=== PATIENT | female | born 1995 | race American Indian/Alaskan Native ===

== ENCOUNTER 2017-07-23 03:07 | Emergency (ER) | payer OTHER ==
[2017-07-23 04:25] LABS: Basophils # (Auto) 0.1 K/mm3 (0.0-0.1); Basophils % (Auto) 2.2 % (0.0-1.8); Eosinophils # (Auto) 0.1 K/mm3 (0.0-0.4); Eosinophils % (Auto) 1.2 % (0.0-4.3); Hematocrit 38.7 % (30.3-42.9); Hemoglobin 12.6 gm/dl (10.1-14.3); Lymphocytes # (Auto) 1.4 K/mm3 (1.2-5.4); Lymphocytes % (Auto) 21.3 % (13.4-35.0); Mean Corpuscular HGB Conc 33 % (30-34); Mean Corpuscular Hemoglobin 27 pg (28-32); Mean Corpuscular Volume 85 fl (79-97); Monocytes # (Auto) 0.2 K/mm3 (0.0-0.8); Monocytes % (Auto) 3.4 % (0.0-7.3); Platelet Count 180 K/mm3 (140-440); Red Blood Count 4.58 M/mm3 (3.65-5.03); Red Cell Distribution Width 13.7 % (13.2-15.2)
[2017-07-23 05:00] LABS: Alanine Aminotransferase 13 units/L (7-56); Albumin 3.9 g/dL (3.9-5); BUN/Creatinine Ratio 12; Blood Urea Nitrogen 11 mg/dL (7-17); Calcium 8.5 mg/dL (8.4-10.2); Hemolysis Index 3
[2017-07-23] MEDS ORDERED: NACL 0.9% 1000 ML 1,000 ML IV ONE (05:15)
--- NOTE | 2017-07-23 07:00 | Emergency Department Report ---
ED Alcohol HPI - General Chief Complaint: Altered Mental Status Stated Complaint: ETOH Time Seen by Provider: 07/23/17 06:10 Source: patient Mode of arrival: Ambulatory Limitations: No Limitations - History of Present Illness Initial Comments: Patient is 21 years old female with no significant past medical history presented to the ER in our call intoxication. Patient stated that she did drink at least 8 cups last night. She stated that she does not drink daily but occasionally. She denied any headache, nausea or vomiting. Patient is sober. She is alert oriented 3. Parents are at bedside with the boyfriend also. I counseled the patient about alcohol and the risk. MD Complaint: alcohol intoxication Last Drink: just [employer] Chronic Alcohol Use: No Previous Visits for Alcohol Intoxication?: No Recent Trauma: No Associated Symptoms: denies other symptoms - Related Data Home Medications Medication Instructions Recorded Confirmed Last Taken No Known Home Medications [No 10/03/15 10/03/15 Unknown Reported Home Medications] Allergies Allergy/AdvReac Type Severity Reaction Status Date / Time No Known Allergies Allergy Unverified 10/03/15 21:07 ED Review of Systems ROS: Stated complaint: ETOH Other details as noted in HPI Comment: All other systems reviewed and negative Constitutional: denies: chills, fever Respiratory: denies: cough, orthopnea, shortness of breath, SOB with exertion, SOB at rest, wheezing Cardiovascular: denies: chest pain, palpitations, dyspnea on exertion Gastrointestinal: denies: abdominal pain, nausea, vomiting, diarrhea, constipation, hematemesis, melena, hematochezia Genitourinary: denies: urgency, dysuria, frequency, hematuria, discharge, abnormal menses, dyspareunia Musculoskeletal: denies: back pain Neurological: denies: headache, weakness, numbness, paresthesias, confusion, abnormal gait ED Past Medical Hx - Past Medical History Previous Medical History?: Yes Additional medical history: A-fib - Surgical History Past Surgical History?: No - Social History Smoking Status: Never Smoker Substance Use Type: Alcohol, Marijuana - Medications Home Medications: Home Medications Medication Instructions Recorded Confirmed Last Taken Type No Known Home Medications [No 10/03/15 10/03/15 Unknown History Reported Home Medications] ED Physical Exam - General Limitations: No Limitations General appearance: alert, in no apparent distress - Head Head exam: Present: atraumatic, normocephalic, normal inspection - Eye Eye exam: Present: normal appearance, PERRL - ENT ENT exam: Present: normal exam, normal orophraynx, mucous membranes moist, TM's normal bilaterally - Neck Neck exam: Present: normal inspection, full ROM. Absent: tenderness, meningismus, lymphadenopathy, thyromegaly - Respiratory Respiratory exam: Present: normal lung sounds bilaterally, prolonged expiratory. Absent: respiratory distress, wheezes, rales, rhonchi, stridor, chest wall tenderness, accessory muscle use, decreased breath sounds - Cardiovascular Cardiovascular Exam: Present: regular rate, normal rhythm, normal heart sounds - GI/Abdominal GI/Abdominal exam: Present: soft, normal bowel sounds. Absent: distended, tenderness, guarding, rebound, rigid, organomegaly, mass, bruit, pulsatile mass , hernia - Extremities Exam Extremities exam: Present: normal inspection, full ROM, normal capillary refill - Back Exam Back exam: Present: normal inspection, full ROM. Absent: tenderness, CVA tenderness (R), CVA tenderness (L), muscle spasm, paraspinal tenderness, vertebral tenderness - Neurological Exam Neurological exam: Present: alert, oriented X3, CN II-XII intact, normal gait, reflexes normal - Psychiatric Psychiatric exam: Present: normal affect, normal mood - Skin Skin exam: Present: warm, intact, normal color ED Course Vital Signs 07/23/17 07/23/17 07/23/17 03:11 03:16 03:24 Temperature 99 F Pulse Rate 105 H Respiratory 19 18 Rate Blood Pressure 123/84 123/84 123/84 Blood Pressure [Left] O2 Sat by Pulse 100 95 Oximetry 07/23/17 07/23/17 07/23/17 03:30 03:39 03:45 Temperature 98.4 F Pulse Rate 110 H 105 H Respiratory 9 L 18 12 Rate Blood Pressure 123/84 Blood Pressure 128/83 [Left] O2 Sat by Pulse 95 100 Oximetry 07/23/17 07/23/17 07/23/17 03:50 04:00 04:15 Temperature Pulse Rate 102 H 96 H 100 H Respiratory 10 L 15 9 L Rate Blood Pressure 119/73 119/73 Blood Pressure [Left] O2 Sat by Pulse 79 L 87 Oximetry 07/23/17 07/23/17 07/23/17 04:30 04:45 05:00 Temperature Pulse Rate 92 H 96 H 94 H Respiratory 10 L 10 L 16 Rate Blood Pressure 106/67 106/67 108/69 Blood Pressure [Left] O2 Sat by Pulse 99 100 100 Oximetry 07/23/17 07/23/17 07/23/17 05:15 05:31 05:45 Temperature Pulse Rate 100 H 92 H 105 H Respiratory 10 L 23 17 Rate Blood Pressure 108/69 98/59 98/59 Blood Pressure [Left] O2 Sat by Pulse 99 99 98 Oximetry 07/23/17 07/23/17 07/23/17 06:00 06:15 06:30 Temperature Pulse Rate 99 H 109 H 91 H Respiratory 15 14 15 Rate Blood Pressure 104/53 104/53 100/67 Blood Pressure [Left] O2 Sat by Pulse 98 97 Oximetry 07/23/17 07/23/17 06:45 07:34 Temperature 98.6 F Pulse Rate 105 H 95 H Respiratory 15 13 Rate Blood Pressure 100/67 Blood Pressure 113/73 [Left] O2 Sat by Pulse 100 100 Oximetry ED Medical Decision Making - Lab Data Result diagrams: 07/23/17 04:14 07/23/17 04:14 Critical care attestation.: If time is entered above; I have spent that time in minutes in the direct care of this critically ill patient, excluding procedure time. ED Disposition Clinical Impression: Alcohol intoxication, Disposition: [id number] TO HOME OR SELFCARE Is pt being admited?: No Condition: Stable Instructions: (ED), Abuse of Alcohol (ED) Additional Instructions: Follow-up with her primary care physician in the next 2-3 days. patient hCG level today is 5.1 Referrals: PRIMARY CARE, [Primary Care Provider] - 3-5 Days
[2017-07-23 07:29] LABS: Amphetamine Screen,Urine PRESUMPTIVE NEGATIVE; Benzodiazepines Screen,Urine PRESUMPTIVE NEGATIVE; Cannabinoid Screen,Urine PRESUMPTIVE NEGATIVE; Cocaine Screen,Urine PRESUMPTIVE NEGATIVE; Methadone Screen,Urine PRESUMPTIVE NEGATIVE; Opiate Screen,Urine PRESUMPTIVE NEGATIVE
[2017-07-23 07:36] VITALS: BP 113/73
== END 2017-07-23 08:29 | disposition home or self-care (01) ==
LOC: ED 03:07
DX: F10.120 Alcohol abuse with intoxication, uncomplicated (principal); I48.91 Unspecified atrial fibrillation
CPT/HCPCS: 36415; 80053; 80307; 84702; 84703; 85025; 93005; 93010; 96360; 99283; G0480; J7030; 80320